=== PATIENT | female | born 1950 ===

== ENCOUNTER 2019-07-29 05:04 | Day surgery (SDC) | payer OTHER ==
[~2019-07-29 05:04] MED LIST: BUSPAR PO; OMEPRAZOLE MAGN20 MG PO; PAXIL40 MG PO; SYNTHROID75 MCG PO; [UNRECOGNIZED DRUG - OTHER] PO
== END 2019-07-29 11:40 | disposition home or self-care (01) ==
LOC: CIR.AMB 05:04 → ADM 08-01 13:00
DX: R15.9 Full incontinence of feces (principal)
CPT/HCPCS: 64581; C1778

== ENCOUNTER 2019-08-05 06:30 | Day surgery (SDC) | payer OTHER | END 2019-08-05 10:46 | disposition home or self-care (01) | LOC: CIR.AMB 06:30 | DX: R15.9 Full incontinence of feces (principal) | CPT/HCPCS: 64590; C1767 ==